=== PATIENT | female | born 1960 | race Caucasian/White ===

== ENCOUNTER 2017-10-01 05:30 | Day surgery (SDC) | payer OTHER ==
[2017-10-01] VITALS (7 sets, daily range): BP systolic 96–132; BP diastolic 53–77; PULSE 60–80; RESP 18–33; Ht 165.1 cm; Wt 58.2 kg
[~2017-10-01] VITALS: Ht 165.1 cm; Wt 58.2 kg
[2017-10-01] MEDS ORDERED: CEFAZOLIN 2 GM/50 ML (PMX) 50 ML IVPB SCH (06:00)
[2017-10-01] MEDS ORDERED: SOD CHLORIDE 0.9% 1,000 ML IV SCH (06:00)
[2017-10-01] MEDS ORDERED: BUPIVACAINE 0.5% (SDV) 30 ML INJ ONE (07:10)
[2017-10-01] MEDS ORDERED: BUPIVACAINE 0.25% (MPF) 30 ML INJ ONE (07:24)
[2017-10-01] MEDS ORDERED: FENTAnyl 50 MCG/ML VIAL ONE (07:45)
[2017-10-01] MEDS ORDERED: DEXAMETHASONE 4 MG/ML 1 ML INJ ONE (07:45)
[2017-10-01] MEDS ORDERED: PROVENTIL HFA 6.7GM INHALER ONE (07:45)
[2017-10-01] MEDS ORDERED: LIDOCAINE 2% (SDV) 5 ML INJ ONE (08:08)
[2017-10-01] MEDS ORDERED: SUCCINYLCHOLINE CHLORIDE 100 MG/5 ML SYG IV ONE (08:09)
[2017-10-01] MEDS ORDERED: SUGAMMADEX SODIUM 200 MG/2 ML VIAL IV ONE (08:09)
[2017-10-01] MEDS ORDERED: ROCURONIUM 50 MG INJ ONE (08:09)
[2017-10-01] MEDS ORDERED: PROPOFOL 20 ML ONE (08:09)
--- NOTE | 2017-10-01 08:27 | OPR ---
Date/Time of Note Date/Time of Note DATE: 10/01/17 TIME: 08:24 Operative Report Procedure Date: Oct 01, 2017 Preoperative Diagnosis left chest mass Postoperative Diagnosis same Operation/Procedure Performed 1. excision of left chest mass 15 cm incision and 14 cm x 12 cm mass 2. localized adjacent tissue transfer with the use of skin flaps 90 sq cm defect 3. therapeutic injection of subcutaneous local anesthesia Surgeon see signature line [place] none Anesthesia Type: general Estimated Blood Loss: 0 - 10 ml's Transfusion none Specimen left chest mass Grafts/Implants none Complications none Pt Condition Post Procedure: stable Indications This is a 56-year-old female with a large left chest mass. She requests surgical excision. Risks alternatives benefits and personnel were discussed the patient. Patient expresses understanding consents to the operation. Procedure Description Patient is taken to the OR and prepped and draped in usual sterile fashion. Surgical timeout was performed. IV antibiotics given. Transverse incision is made over the left chest mass with a 15 blade. Dissection cauterie was taken down to the mass. The mass was excised using cautery right off of the muscle of the left chest wall. There is good hemostasis. Due to tissue defect localized adjacent tissue transfer with these of skin flaps was performed. Multilayer closure with interrupted 3-0 Vicryl and skin jeannine. Therapeutic subcutaneous local anesthesia was injected throughout the incision site. Dry dressings were applied. Juan C YE Oct 01, 2017 08:27
[2017-10-01] MEDS ORDERED: METOCLOPRAMIDE 10 MG INJ IV PRN (08:30)
[2017-10-01] MEDS ORDERED: MEPERIDINE 25 MG INJ IV PRN (08:30)
[2017-10-01] MEDS ORDERED: DIPHENHYDRAMINE 50 MG INJ IV PRN (08:30)
[2017-10-01] MEDS ORDERED: HYDROmorphONE (0.2 MG/ML) 10ML SYG IV PRN ×3 (08:30)
[2017-10-01] MEDS ORDERED: HYDROCODONE/APAP (5/325) TAB PO ONE (08:30)
[2017-10-01] MEDS ORDERED: FENTAnyl 50 MCG/ML VIAL IV PRN ×2 (08:30)
[2017-10-01] MEDS ORDERED: ONDANSETRON 4 MG INJ IV PRN (08:30)
== END 2017-10-01 09:50 | disposition home or self-care (01) ==
LOC: SDS 05:30 → SUR 05:30
PROVIDERS: ATTEND Surgery
DX: R22.2 Localized swelling, mass and lump, trunk (principal); D17.1 Benign lipomatous neoplasm of skin and subcutaneous tissue of trunk
CPT/HCPCS: 14301; 14302; J1100; J1170; J2765; J3010; J7030; Z7512; Z7610